=== PATIENT | female | born 1990 | race Caucasian/White ===

== ENCOUNTER → 2016-02-21 | Outpatient (CLI) | payer MEDICAID, OTHER ==
--- NOTE | 2016-02-21 10:38 | US ---
EXAMINATION TYPE: US OB >= 14 wk fetus DATE OF EXAM: 02/21/2016 10:16 AM COMPARISON: 01/08/2016 CLINICAL HISTORY: LGA, no complaints per pt TECHNIQUE: Transabdominal (TA) GESTATIONAL AGE / DATING Physician Established: (32 weeks/5 days) EDC: 04/12/2016 Dates by LMP: (32 weeks/5 days) EDC: 04/12/2016 Dates by First Scan: (32 weeks/2 days) EDC: 04/15/2016 Dates by Current Scan: (31 weeks/6 days) EDC: 04/18/2016 SURVEY IUP: Single PLACENTA: Posterior PREVIA: No Previa CAITLIN: 15.2 cm Normal CERVICAL LENGTH (transabdominal: norm > 3.0cm): 3.2 cm BIOMETRY PRESENTATION: Vertex LIE: Longitudinal BPD: 7.8 cm 31 weeks / 3 days HC: 29.0 cm 31 weeks / 5 days AC: 27.7 cm 31 weeks / 5 days FL: 6.3 cm 32 weeks / 5 days ESTIMATED WEIGHT IN GRAMS: 1883 grams ESTIMATED WEIGHT IN LBS/OZS: 4 lbs. 2 oz. WEIGHT PERCENTAGE BASED ON ESTABLISHED DATES: 20% HC/AC: 1.04 Normal FL/AC: 22 Normal HEART RATE: 138 bpm RHYTHM: Normal LIMITED ANATOMY SEEN DUE TO ADVANCED AGE AND LIE: Vent 0.7cm WNL ML Falx WNL Four Chamber Heart WNL Stomach WNL Diaphragm WNL Bladder WNL Nose/Lips WNL IMPRESSION: 1. Viable intrauterine , growth congruent with established dates, limited anatomy assessmen t as described above.
== END | disposition home or self-care (01) ==
LOC: RADUSWWP 09:43
PROVIDERS: ATTEND Obstetrics & Gynecology
DX: O36.63X0 Maternal care for excessive fetal growth, third trimester, not applicable or unspecified (principal); Z3A.31 31 weeks gestation of pregnancy
CPT/HCPCS: 76805

== ENCOUNTER 2016-04-13 06:00 | Inpatient (IN) | payer MEDICAID, OTHER ==
[2016-04-13] MEDS ORDERED: CARBOPROST TROMETHAMINE 250 MCG/ML 1 ML AMP IM PRN (06:38)
[2016-04-13] MEDS ORDERED: LIDOCAINE 1% (PF) 10 MG/ML (30 ML SDV) SQ PRN (06:38)
[2016-04-13] MEDS ORDERED: AMPICILLIN 2,000 MG in SODIUM CHLORIDE 0.9% 100 ML IVPB STA (06:38)
[2016-04-13] MEDS ORDERED: METHYLERGONOVINE 0.2 MG/ML 1 ML AMP IM PRN (06:38)
[2016-04-13] MEDS ORDERED: TERBUTALINE 1 MG/ML VIAL SQ PRN (06:38)
[2016-04-13] MEDS ORDERED: OXYTOCIN 10 UNIT/ML 1 ML VIAL IM PRN (06:38)
[2016-04-13] MEDS ORDERED: LACTATED RINGERS 1,000 ML IV SCH ×2 (06:45)
[2016-04-13] MEDS ORDERED: OXYTOCIN 30 UNITS/500 ML NS 30 UNIT in SALINE 1 500ML.BAG IV SCH ×2 (06:45→17:30)
[2016-04-13 06:47] VITALS: BMI 42.4
[2016-04-13 10:03] LABS: Hepatitis B Surface Ag Index 0.07
[2016-04-13 10:24] LABS: Basophils % (A) 0 %; CH 30.7; CHCM 33.6; Eosinophils # (A) 0.2 k/uL (0-0.7); Eosinophils % (A) 1 %; HCT 39.7 % (34.0-46.0); HDW 2.67; HGB 13.2 gm/dL (11.4-16.0); Luc # (Auto) 0.18; Luc % (Auto) 2; Lymphocytes # (A) 1.9 k/uL (1.0-4.8); Lymphocytes % (A) 17 %; MCH 30.6 pg (25.0-35.0); MCHC 33.2 g/dL (31.0-37.0); Mean Platelet Volume 8.9; Monocytes # (A) 0.5 k/uL (0-1.0); Monocytes % (A) 4 %; Neutrophils # (A) 8.3 k/uL (1.3-7.7); Neutrophils % (A) 75 %; RBC 4.32 m/uL (3.80-5.40); RDW 13.9 % (11.5-15.5); WBC (Perox) 11.19
[2016-04-13] MEDS: AMPICILLIN 1,000 MG in SODIUM CHLORIDE 0.9% 50 ML IVPB SCH ×2 (11:05→15:20)
[2016-04-13] MEDS ORDERED: BUPIVACAINE (PF) 0.25% 30 ML VIAL ONE (11:36)
[2016-04-13] MEDS ORDERED: fentaNYL (PF) 50 MCG/ML 5 ML AMP ONE (11:36)
[2016-04-13] MEDS ORDERED: SODIUM CHLORIDE 0.9% 100 ML BAG ONE (11:36)
[2016-04-13] MEDS ORDERED: BUPIVACAINE (PF) 0.25% 25 ML, fentaNYL (PF) 200 MCG in SODIUM CHLORIDE 0.9% 71 ML EPIDURAL ONE (11:49)
[2016-04-13] MEDS: LACTATED RINGERS 1,000 ML IV SCH ×2 (11:50→16:38)
[2016-04-13] MEDS ORDERED: WITCH HAZEL 1 EACH MED..PAD TOPICAL PRN (17:27)
[2016-04-13] MEDS ORDERED: diphenhydrAMINE 25 MG CAP PO PRN (17:27)
[2016-04-13] MEDS ORDERED: diphenhydrAMINE 50 MG CAP PO PRN (17:27)
[2016-04-13] MEDS ORDERED: BENZOCAINE/MENTHOL SPRAY 1 GM/SPRAY AEROSOL TOPICAL PRN (17:27)
[2016-04-13] MEDS ORDERED: Acetaminophen-Codeine 300-30mg TAB PO PRN ×2 (17:27)
[2016-04-13] MEDS ORDERED: HYDROCORTISONE 2.5% RECTAL CREAM 30 GM TUBE RECTAL PRN (17:27)
[2016-04-13] MEDS ORDERED: MEASLES-MUMPS-RUBELLA VACC/PF 12,500 UNIT/0.5 ML VIAL SQ ONE (17:27)
[2016-04-13] MEDS ORDERED: ACETAMINOPHEN TAB 325 MG TAB PO PRN (17:27)
[2016-04-13] MEDS ORDERED: LANOLIN CREAM 5 GM TUBE TOPICAL PRN (17:27)
[2016-04-13] MEDS ORDERED: ZOLPIDEM 5 MG TAB PO PRN (17:27)
[2016-04-13] MEDS ORDERED: diphenhydrAMINE 50 MG/ML 1 ML VIAL IVP PRN ×2 (17:27)
[2016-04-13] MEDS ORDERED: SIMETHICONE 80 MG CHEWABLE PO PRN (17:27)
--- NOTE | 2016-04-13 17:29 | P.HPOB ---
History of Present Illness H&P Date: 04/13/16 Chief Complaint: IUP term Jennifer is a 25-year-old at 40 weeks gestation who arrives for induction of labor. She is dilated 1-1/2 cm and 70% effaced. -3 station. Artificial rupture membranes was performed and clear fluid is noted. Her course was relatively unremarkable and she is feeling well at this time. She plans to use an epidural for analgesia. No other gross findings. Physical exam: Heart regular, lungs clear, extremities without pain. Abdomen is soft and gravid.. heart tones in the 140s and are reactive. Past Medical History Past Medical History: No Reported History History of Any Multi-Drug Resistant Organisms: None Reported Past Surgical History: No Surgical Hx Reported Past Anesthesia/Blood Transfusion Reactions: No Reported Reaction Past Psychological History: No Psychological Hx Reported Smoking Status: Never smoker Past Alcohol Use History: None Reported Past Drug Use History: None Reported - Past Family History Mother Family Medical History: No Reported History Medications and Allergies Home Medications Medication Instructions Recorded Confirmed Type Dextroamphetamine/Amphetamine 20 mg PO TID 07/09/14 04/13/16 History [Adderall] Allergies Allergy/AdvReac Type Severity Reaction Status Date / Time No Known Allergies Allergy Verified 07/09/14 09:03 Exam Osteopathic Statement: *. No significant issues noted on an osteopathic structural exam other than those noted in the History and Physical/Consult. - Vital Signs Vital signs: Intake and Output 04/13/16 04/13/16 04/13/16 06:59 14:59 22:59 Output Total 100 Balance -100 Output: Urine 100 Other: Weight 119.295 kg - OBG Physical Exam Breast: both: normal (no masses) Abdomen: bowel sounds normal, no diffuse tenderness, no bruit present, no guarding noted, no hepatomegaly, no splenomegaly, no mass Vulva: both: normal Vagina: normal moisture, no discharge Cervix: no lesion, no discharge Uterus: normal size, normal contour Adnexa: both: normal Anus/Rectum: normal perianal skin, no rectal mass, no hemorrhoids, heme negative Results Result Diagrams: 04/13/16 06:55 Abnormal Lab Results - Last 24 Hours (Table) 04/13/16 Range/Units 06:55 WBC 11.0 H (3.8-10.6) k/uL Neutrophils # 8.3 H (1.3-7.7) k/uL
--- NOTE | 2016-04-13 17:30 | P.PROBDLV ---
Vaginal Delivery Note - . Vaginal Delivery Note: Patient progressed to complete and pushing with spontaneous vaginal delivery of a viable female over an intact perineum. Following delivery of the head interim posterior shoulders were delivered with gentle downward upper traction and a nuchal cord 1 was easily reduced. Once baby was delivered mouth nares were bulb suctioned and baby was placed on mother's abdomen where the umbilical cord was clamped and cut in usual fashion. Placenta was then delivered intact and nursery personnel was present to assume care. scores were 9 and 9 at one and 5 minutes respectively and the weight was 6 lbs. 14 oz. Both mother and baby are currently stable following delivery.
[2016-04-13 18:53] VITALS: RESP 16
[2016-04-13] MEDS: IBUPROFEN 600 MG TAB PO PRN (19:28)
[2016-04-13] MEDS: SENNOSIDES-DOCUSATE SODIUM 1 EACH TAB PO SCH (19:28)
[2016-04-14] MEDS: IBUPROFEN 600 MG TAB PO PRN (04:09)
[2016-04-14 06:53] LABS: HIV-1/HIV-2 Ab Screen NONREAC (NON REAC)
--- NOTE | 2016-04-14 08:59 | P.DS ---
Providers Date of admission: 04/13/16 06:30 Expected date of discharge: 04/14/16 Attending physician: Hang Cr Primary care physician: Stated None Hospital Course: Jennifer is doing very well day 1. She is ambulating, voiding, and she is tolerating her diet. She voices no complaints and requests nothing for pain to go home with. Her vital signs otherwise stable and she is afebrile. Heart regular, lungs clear, extremities without pain. Abdomen soft uterus is firm and lochia is reported be light. Assessment post day 1. Plan discharged home follow up me in 6 weeks. Discharge instructions thoroughly reviewed and all questions are answered for her before discharge. Patient Condition at Discharge: Good Plan - Discharge Summary Discharge Medication List Benzonatate [Tessalon Perles] 100 mg PO TID PRN #30 capsule 07/09/14 [Rx] Dextroamphetamine/Amphetamine [Adderall] 20 mg PO TID 07/09/14 [History] Ibuprofen [Motrin] 800 mg PO Q8HR PRN #30 tab 07/09/14 [Rx] Follow up Appointment(s)/Referral(s): Hang Cr DO [Doctor of Osteopathic Medicine] - 6 Weeks Activity/Diet/Wound Care/Special Instructions: No heavy lifting, limit stairs and driving and pelvic rest. If any high temperatures, heavy bleeding, or severe pain call my office Discharge Disposition: HOME SELF-CARE
[2016-04-14] MEDS: SENNOSIDES-DOCUSATE SODIUM 1 EACH TAB PO SCH (13:14)
[2016-04-14 16:35] VITALS: BP 113/63; PULSE 77; TEMP 98.2
== END 2016-04-14 17:32 | disposition home or self-care (01) | DRG 775 ==
LOC: 4FBP 06:30
PROVIDERS: ADMIT Obstetrics & Gynecology; ATTEND Obstetrics & Gynecology
PROC: 10E0XZZ Delivery of Products of Conception, External Approach (ICD-10-PCS; principal; 2016-04-13)
PROC: 10907ZC Drainage of Amniotic Fluid, Therapeutic from Products of Conception, Via Natural or Artificial Opening (ICD-10-PCS; 2016-04-13)
PROC: 3E033VJ Introduction of Other Hormone into Peripheral Vein, Percutaneous Approach (ICD-10-PCS; 2016-04-13)
PROC: 00HU33Z Insertion of Infusion Device into Spinal Canal, Percutaneous Approach (ICD-10-PCS; 2016-04-13)
PROC: 3E0R3CZ (ICD-10-PCS; 2016-04-13)
PROC: 3E0234Z Introduction of Serum, Toxoid and Vaccine into Muscle, Percutaneous Approach (ICD-10-PCS; 2016-04-13)
DX: O69.81X0 Labor and delivery complicated by cord around neck, without compression, not applicable or unspecified (principal); Z23 Encounter for immunization; Z37.0 Single live birth; Z3A.40 40 weeks gestation of pregnancy; Z79.899 Other long term (current) drug therapy
CPT/HCPCS: 85025; 86762; 86850; 86900; 86901; 87340; 87389; 88307; 90707